=== PATIENT | female | born 1940 | race Caucasian/White ===

== ENCOUNTER 2021-05-06 07:48 | Outpatient (CLI) | payer OTHER ==
[~2021-05-06 07:48] MED LIST: ASA81 MG PO; AVAPRO300 MG PO; CARDURA1 MG PO; LYRICA50 MG PO; METFORMIN HCL500 MG PO; NAMENDA10 MG PO; OMEGA-3100 MG PO; PROTEGRA PO; SIMVASTATIN20 MG PO; VITAMIN B-12100 MCG PO
== END 2021-05-06 07:52 | disposition home or self-care (01) ==
LOC: NUCLEAR 07:48
PROVIDERS: ATTEND Internal Medicine
DX: R07.2 Precordial pain (principal); I25.10 Atherosclerotic heart disease of native coronary artery without angina pectoris; I25.2 Old myocardial infarction; E78.00 Pure hypercholesterolemia, unspecified
CPT/HCPCS: 78452; 93017; A9500; J1250